=== PATIENT | female | born 1950 | race Caucasian/White ===

== ENCOUNTER 2017-09-28 10:18 | Outpatient (CLI) | payer MEDICARE | END 2017-09-28 10:19 | disposition home or self-care (01) | LOC: NAV DTY OP 10:18 | PROVIDERS: ATTEND Family Medicine | DX: E11.9 Type 2 diabetes mellitus without complications (principal) | CPT/HCPCS: 97802 ==

== ENCOUNTER 2017-10-11 18:27 | Emergency (ER) | payer MEDICARE ==
[2017-10-11] MEDS ORDERED: Amlodipine 5 MG TAB ONE (19:32)
[2017-10-11] MEDS ORDERED: methylPREDNISolone Acetate 40 mg/ml Vial ONE ×2 (19:49→19:53)
[2017-10-11] MEDS ORDERED: cefTRIAXone\\ROCEPHIN 1 GM VIAL ONE (19:49)
[2017-10-11] MEDS ORDERED: Lidocaine 1% 20 ML MDV ONE (19:49)
== END 2017-10-11 20:24 | disposition home or self-care (01) ==
LOC: NAV ERS 18:27
DX: J44.1 Chronic obstructive pulmonary disease with (acute) exacerbation (principal); E11.9 Type 2 diabetes mellitus without complications; E78.5 Hyperlipidemia, unspecified; I10 Essential (primary) hypertension; Z85.3 Personal history of malignant neoplasm of breast; Z79.84 Long term (current) use of oral hypoglycemic drugs; Z79.899 Other long term (current) drug therapy
CPT/HCPCS: 87804; 96372; J0696; J1030; J2001; J7620

== ENCOUNTER 2017-10-21 16:08 | Emergency (ER) | payer MEDICARE ==
--- NOTE | 2017-10-21 18:12 | RAD ---
LEFT FOOT THREE VIEWS 10/21/17 HISTORY: Fall. Left foot injury. FINDINGS: Lisfranc joint alignment is anatomic. Plantar arch is maintained. Mild bunion deformity is apparent. Mild degenerative changes of the hindfoot and ankle are visible. IMPRESSION: No acute osseous abnormalities are demonstrated. POS: [facility]
--- NOTE | 2017-10-21 18:15 | RAD ---
LEFT ANKLE THREE VIEWS 10/21/17 HISTORY: Fall. Left ankle injury. FINDINGS: Ankle mortise is intact. Cortical remodeling of the distal fibula includes a healed lateral malleolar fracture that was at and just above the level of the ankle mortise. One quarter shaft width of poste rior displacement remains. Tiny well corticated ossifications are noted at the lateral margin of the hindfoot. Osteophytosis is also present throughout the hindfoot and ankle. IMPRESSION: Old mildly displaced healed left lateral malleolar fracture. Additional old posttraumatic and degener ative changes of the ankle and hindfoot are apparent. No acute fractures are visible. POS: [facility]
== END 2017-10-21 18:10 | disposition home or self-care (01) ==
LOC: NAV ERS 16:08
DX: S93.402A Sprain of unspecified ligament of left ankle, initial encounter (principal); E78.5 Hyperlipidemia, unspecified; I10 Essential (primary) hypertension; F41.9 Anxiety disorder, unspecified; Z79.899 Other long term (current) drug therapy; Z79.84 Long term (current) use of oral hypoglycemic drugs; E11.9 Type 2 diabetes mellitus without complications; W17.89XA Other fall from one level to another, initial encounter